=== PATIENT | female | born 1970 | race American Indian/Alaskan Native ===

== ENCOUNTER 2019-06-03 15:11 | Emergency (ER) | payer MEDICAID ==
[2019-06-03 15:37] VITALS: BP 122/71
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
== END 2019-06-03 19:30 | disposition left against medical advice (07) ==
LOC: ED 15:11
DX: M54.2 Cervicalgia (principal); M54.5 Low back pain; V89.2XXA Person injured in unspecified motor-vehicle accident, traffic, initial encounter; Y93.89 Activity, other specified; Y92.488 Other paved roadways as the place of occurrence of the external cause; Y99.8 Other external cause status; Z53.21 Procedure and treatment not carried out due to patient leaving prior to being seen by health care provider